=== PATIENT | female | born 1990 | race Caucasian/White ===

== ENCOUNTER 2018-06-10 10:27 | Emergency (ER) | payer OTHER ==
[~2018-06-10] VITALS: Ht 180.3 cm; Wt 64.0 kg
[2018-06-10 10:35] VITALS: Ht 180.3 cm; Wt 64.0 kg
[2018-06-10 11:21] VITALS: BP 105/69
== END 2018-06-10 11:21 | disposition home or self-care (01) ==
LOC: ED 10:27
DX: Z48.01 Encounter for change or removal of surgical wound dressing (principal); Z88.0 Allergy status to penicillin

== ENCOUNTER 2019-07-21 20:41 | Emergency (ER) | payer OTHER ==
[~2019-07-21] VITALS: Ht 180.3 cm; Wt 68.5 kg
[2019-07-21 22:41] VITALS: BP 128/86
== END 2019-07-21 22:41 | disposition home or self-care (01) ==
LOC: ED 20:41
DX: G43.909 Migraine, unspecified, not intractable, without status migrainosus (principal); Z88.0 Allergy status to penicillin
CPT/HCPCS: J1885; J8597; Q0163

== ENCOUNTER 2020-04-17 06:15 | Emergency (ER) | payer OTHER ==
[~2020-04-17] VITALS: Ht 177.8 cm; Wt 73.0 kg
[2020-04-17 06:20] VITALS: BP 127/59; Ht 177.8 cm; Wt 73.0 kg
== END 2020-04-17 07:04 | disposition home or self-care (01) ==
LOC: ED 06:15
DX: R20.8 Other disturbances of skin sensation (principal); R20.2 Paresthesia of skin; Z88.0 Allergy status to penicillin